=== PATIENT | female | born 1990 | race African-American/Black ===

== ENCOUNTER 2016-11-02 10:53 | Emergency (ER) | payer OTHER ==
[2016-11-02 10:59] VITALS: BP 126/80; PULSE 70; TEMP 98.1; BMI 38.2
--- NOTE | 2016-11-02 11:52 | PDOC ---
History of Present Illness - General Chief Complaint: Injury Stated Complaint: FELL DOWN STEPS Time Seen by Provider: 11/02/16 11:20 History Source: Patient Exam Limitations: No Limitations - History of Present Illness Initial Comments: 11/02/16 11:46 This is a 26 yo woman without significant medical history who presents with l/s spine pain s/p feet first fall down 6 concrete steps. She states she was walking down stairs in the rain and slipped feet first. She states she landed on her buttocks and struck her lower back on concrete steps. She denies striking her head or any LOC. She was able to stand and ambulate with assistance after the fall. She denies incontinence or saddle anesthesia. Patient ambulatory upon arrival. Coworkers activated EMS. 11/02/16 13:06 Occurred: reports: just prior to arrival Severity: reports: severe Pain Location: reports: back Method of Injury: Yes: fall Modifying Factors: improves with: None Loss of Consciousness: no loss of consciousness Associated Symptoms (Fall): denies symptoms Past History - Travel Traveled outside of the country in the last 30 days: No Close contact w/someone who was outside of country & ill: No - Past Medical History Allergies/Adverse Reactions: Allergies Allergy/AdvReac Type Severity Reaction Status Date / Time No Known Allergies Allergy Verified 11/02/16 10:55 Anemia: No Asthma: No Cancer: No Cardiac Disorders: No Hx Myocardial Infarction: No CVA: No COPD: No CHF: No DVT: No Dementia: No Diabetes: No Dialysis: No GI Disorders: No Disorders: No HTN: No Hypercholesterolemia: No HIV: No Kidney Stones: No Liver Disease: No Psychiatric Problems: No Suicide Attempt (Hx): No Seizures: No Thyroid Disease: No Lung CA: No Other medical history: fibroids - Surgical History Other Surgical History: 11/02/16 11:42 tonsillectomy- remote - Reproductive History Uterine Fibroids: Yes - Psycho/Social/Smoking Cessation Hx Anxiety: No Suicidal Ideation: No Smoking Status: No Smoking History: Never smoked Information on smoking cessation initiated: No Hx Alcohol Use: No Drug/Substance Use Hx: No Substance Use Type: None Patient Lives Alone: No Lives with/in: spouse/SO Trauma Specific PMHX - Complaint Specific PMHX Back Injury: Yes Review of Systems - Review of Systems Able to Perform ROS?: Yes Is the patient limited Martiniquais proficient: No Constitutional: No: Symptoms Reported HEENTM: No: Symptoms Reported Respiratory: No: Symptoms reported Cardiac (ROS): No: Symptoms Reported ABD/GI: No: Symptoms Reported : No: Symptoms Reported Musculoskeletal: Yes: Back Pain, Other (upper back pain) Integumentary: No: Symptoms Reported Neurological: No: Symptoms reported *Physical Exam - Vital Signs Last Vital Signs Temp Pulse Resp BP Pulse Ox 98.1 F 70 18 126/80 100 11/02/16 10:56 11/02/16 10:56 11/02/16 10:56 11/02/16 10:56 11/02/16 10:56 - Physical Exam General Appearance: Yes: Appropriately Dressed. No: Apparent Distress HEENT: positive: KELSIE, Normal ENT Inspection, Normal Voice, Symmetrical, Pharynx Normal Neck: positive: Trachea midline, Supple. negative: Tender Respiratory/Chest: positive: Lungs Clear, Normal Breath Sounds. negative: Chest Tender, Respiratory Distress, Accessory Muscle Use Cardiovascular: positive: Regular Rhythm, Regular Rate, S1, S2. negative: Edema , Murmur Gastrointestinal/Abdominal: positive: Normal Bowel Sounds, Soft. negative: Tender, Organomegaly Musculoskeletal: positive: Muscle Spasm (bilateral upper back at ribs 3-4-5), Vertebral Tenderness (over L4-L5). 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 She states she was walking down stairs in the rain and slipped feet first. She states she landed on her buttocks and struck her lower back on concrete steps. She denies striking her head or any LOC. She was able to stand and ambulate with assistance after the fall. She denies incontinence or saddle anesthesia. Patient ambulatory upon arrival. Coworkers activated EMS. CXR L/S spine films Naproxen 11/02/16 13:07 Xrays show no deformity or malalignment to osseous structures. Pt feels better. Will discharge. *DC/Admit/Observation/Transfer Diagnosis at time of Disposition: Back pain Qualifiers: Back pain location: low back pain Chronicity: acute Back pain laterality: midline Sciatica presence: without sciatica Qualified Code(s): M54.5 - Low back pain - Discharge Dispostion Disposition: HOME Condition at time of disposition: Stable Admit: No - Patient Instructions Printed Discharge Instructions: DI for Musculoskeletal Pain Additional Instructions: Use ice for 20 minutes followed by 20 minutes off. Repeat as needed. Take naproxen (Aleve) twice a day for pain. Eat a well balanced diet. Return to ED for loss of continence, loss of feeling to genitals or buttocks, loss of feeling to legs or any other complaints. - Post Discharge Activity Work/School Note: Back to Work
[2016-11-02 12:08] LABS: URINE APPEARANCE CLEAR; URINE BILIRUBIN NEGATIVE (NEGATIVE); URINE BLOOD NEGATIVE (NEGATIVE); URINE COLOR YELLOW; URINE GLUCOSE (UA) NEGATIVE (NEGATIVE); URINE KETONE TRACE (NEGATIVE); URINE LEUK ESTERASE NEGATIVE (NEGATIVE); URINE NITRITE NEGATIVE (NEGATIVE); URINE PROTEIN NEGATIVE (NEGATIVE)
[2016-11-02] MEDS ORDERED: NAPROXEN 500 MG TABLET (FP) PO ONE (12:58)
== END 2016-11-02 13:22 | disposition home or self-care (01) ==
LOC: JERFT 10:53
DX: M54.5 Low back pain (principal); W10.8XXA Fall (on) (from) other stairs and steps, initial encounter; Y93.89 Activity, other specified; Y92.89 Other specified places as the place of occurrence of the external cause
CPT/HCPCS: 71020-TC; 72100-TC; 81003; 84703; 99281-25